=== PATIENT | male | born 1970 | race Caucasian/White ===

== ENCOUNTER 2024-05-10 19:55 | Inpatient (IN) | payer MEDICAID ==
[~2024-05-10] VITALS: Ht 188 cm; Wt 76.2 kg
[2024-05-10] MEDS: IPRATROPIUM/ALBUTEROL 0.5-3(2.5)MG/3ML NEB HHN SCH (08:48)
[2024-05-10 20:05] VITALS: RESP 18
[2024-05-10] MEDS ORDERED: FENTANYL 2500MCG/250ML PMX 250 ML IV ONE (20:15)
[2024-05-10] MEDS: ETOMIDATE 2MG/ML 10ML VIAL IV ONE (20:32)
[2024-05-10] MEDS: ROCURONIUM BROMIDE 10MG/ML VIAL 5ML IV ONE (20:33)
[2024-05-10] MEDS: LEVETIRACETAM 1000MG PREMIX 100 ML IV ONE (20:38)
[2024-05-10] MEDS: PROPOFOL 10MG/ML 100ML 100 ML IV SCH (20:38)
[2024-05-10 20:53] LABS: CHLORIDE 103 mEq/L (98-107); POTASSIUM 3.7 mEq/L (3.5-5.1); SODIUM 142 mEq/L (136-145)
[2024-05-10 20:54] LABS: CALCIUM 9.4 mg/dL (8.7-10.4); CARBON DIOXIDE 17 mEq/L (21-32)
[2024-05-10 20:59] LABS: CREATININE 1.4 mg/dL (0.6-1.3); GLUCOSE 187 mg/dL (70-105); UREA NITROGEN BLOOD 12 mg/dL (9-23)
[2024-05-10 21:00] LABS: TROPONIN I HIGH SENSITIVITY 5 ng/L (3.0-53)
[2024-05-10 21:08] LABS: ETHANOL BLOOD < 10 mg/dL (<10)
[2024-05-10 21:36] LABS: BASOPHILS % 0.9 % (0.0-2.0); EOSINOPHILS % 0.2 % (0.0-5.0); HEMATOCRIT. 32.8 % (42.0-52.0); HEMOGLOBIN. 10.8 g/dL (14.0-18.0); MEAN CORPUSCULAR HEMOGLOBIN 35.5 pg (28.0-32.0); MEAN CORPUSCULAR HGB CONC 32.9 g/dL (31.0-37.0); MEAN CORPUSCULAR VOLUME 107.8 fL (80.0-94.0); MONOCYTES % 6.9 % (2.0-8.0); RED BLOOD CELL COUNT 3.04 mill/uL (4.7-6.1); RED CELL DISTRIBUTION WIDTH 12.3 % (11.6-14.6); WHITE BLOOD COUNT 12.4 x1000/uL (4.5-11.0)
[2024-05-10 21:42] LABS: DIFFERENTIAL COMMENT 1
[2024-05-10] MEDS ORDERED: MAGNESIUM/ALUMINUM HYDROXIDE/SIMETHICONE 30ML UDC PO PRN (21:45)
[2024-05-10] MEDS ORDERED: IPRATROPIUM/ALBUTEROL 0.5-3(2.5)MG/3ML NEB HHN PRN (21:45)
[2024-05-10] MEDS: DEXT 5%/LACTATED RINGERS 1,000 ML IV ONE (21:45)
[2024-05-10] MEDS ORDERED: DOCUSATE SODIUM 100MG CAPSULE PO PRN (21:45)
[2024-05-10] MEDS ORDERED: ONDANSETRON HCL 4MG/2ML INJ IV PRN (21:45)
[2024-05-10 22:17] LABS: PLATELET 179 x1000/uL (130-400)
[2024-05-10 22:18] LABS: MEAN PLATELET VOLUME 9.4 fl (7.4-10.4)
[2024-05-10] MEDS: FENTANYL CITRATE 2,500 MCG in SODIUM CHLORIDE 0.9% 200 ML IV PRN (22:22)
[2024-05-10 22:29] LABS: BG DEOXYHEMOGLOBIN 0.7 % (0.0-5.0); BG FRACTION INSPIRED OXYGEN 90; BG HCO3 ACT 23.2 mmol/L (21.0-28.0); BG METHEMOGLOBIN 0.2 % (0.5-1.5); BG OXYGEN SATURATION 99.3 % (94.0-98.0); BG OXYHEMOGLOBIN 98.1 % (94.0-98.0); BG PCO2 51.4 mmHg (35.0-48.0); BG PH 7.272 (7.350-7.450); BG PO2 198.6 mmHg (83.0-108.0); BG SAMPLE SITE RIGHT RADIAL; BG TOTAL HEMOGLOBIN 11.8 g/dL (13.5-17.5); BG VENT MODE VENT - AC
[2024-05-10 22:55] VITALS: PULSE 94; RESP 18; O2SAT 100
[2024-05-10 22:59] LABS: INR 1.1; PROTHROMBIN TIME 11.7 sec (9.6-11.0)
[2024-05-10 23:05] LABS: IRON 151 ug/dL (65-175)
[2024-05-10 23:07] LABS: AMMONIA 32 uMol/L (<32); TOTAL IRON BINDING CAPACITY 308 ug/dl (250-425)
[2024-05-10 23:22] LABS: CREATINE KINASE 152 IU/L (46-171)
[2024-05-10] MEDS ORDERED: PROPOFOL 10MG/ML 100ML 100 ML IV SCH (23:45)
[2024-05-10] MEDS ORDERED: FENTANYL 2500MCG/250ML PMX 250 ML IV PRN (23:45)
[2024-05-11] VITALS (92 sets, daily range): BP systolic 73–126; BP diastolic 48–89; PULSE 63–148; RESP 15–21; TEMP 36.50292–37.2252; O2SAT 94–100
[2024-05-11 00:04] LABS: CLARITY URINE CLEAR (CLEAR); COLOR URINE YELLOW (YELLOW); GLUCOSE URINE 1+ (NEGATIVE); KETONES URINE NEGATIVE (NEGATIVE); LEUKOCYTE ESTERASE URINE NEGATIVE (NEGATIVE); NITRITE URINE NEGATIVE (NEGATIVE); OCCULT BLOOD URINE NEGATIVE (NEGATIVE); PROTEIN URINE NEGATIVE (NEGATIVE); SPECIFIC GRAVITY URINE 1.014 (1.005-1.030); UROBILINOGEN URINE 0.2 E.U./dL (0.2-1.0)
[2024-05-11 00:05] LABS: HEMATOCRIT 32.8 % (42.0-52.0); HEMOGLOBIN 11.1 g/dL (14.0-18.0); MEAN CORPUSCULAR HEMOGLOBIN 35.9 pg (28.0-32.0); MEAN CORPUSCULAR HGB CONC 33.9 g/dL (31.0-37.0); MEAN CORPUSCULAR VOLUME 106.1 fL (80.0-94.0); PLATELET 162 x1000/uL (130-400); RED BLOOD CELL COUNT 3.09 mill/uL (4.7-6.1); RED CELL DISTRIBUTION WIDTH 12.4 % (11.6-14.6); WHITE BLOOD COUNT 9.3 x1000/uL (4.5-11.0)
[2024-05-11 00:07] LABS: CHLORIDE 106 mEq/L (98-107); POTASSIUM 3.7 mEq/L (3.5-5.1); SODIUM 139 mEq/L (136-145)
[2024-05-11 00:08] LABS: CALCIUM 9.1 mg/dL (8.7-10.4); CARBON DIOXIDE 23 mEq/L (21-32)
[2024-05-11 00:13] LABS: CREATININE 1.2 mg/dL (0.6-1.3); GLUCOSE 171 mg/dL (70-105); UREA NITROGEN BLOOD 12 mg/dL (9-23)
[2024-05-11 00:15] LABS: PHOSPHORUS 3.7 mg/dL (2.5-4.9)
[2024-05-11] MEDS ORDERED: MIDAZOLAM 100MG/100ML PMX 100 ML IV PRN (00:15)
[2024-05-11] MEDS ORDERED: PHENYLEPHRINE 50MG/250ML PMX 250 ML IV PRN (00:15)
[2024-05-11] MEDS ORDERED: DEXMEDETOMIDINE 400 MCG/100 ML 100 ML IV PRN (00:15)
[2024-05-11 00:25] LABS: *AMPHETAMINES SCREEN URINE NEGATIVE (NEGATIVE); *BARBITURATES SCREEN URINE NEGATIVE (NEGATIVE); *BENZODIAZEPINES SCREEN URINE PRESUMPTIVE POSITIVE (NEGATIVE)
[2024-05-11 00:26] LABS: *COCAINE SCREEN URINE NEGATIVE (NEGATIVE); CANNABINOID URINE SCREEN NEGATIVE (NEGATIVE); ECSTASY MDMA SCREEN URINE NEGATIVE (NEGATIVE); METHADONE URINE SCREEN NEGATIVE (NEGATIVE); OPIATES URINE SCREEN NEGATIVE (NEGATIVE); PHENCYCLIDINE URINE SCREEN NEGATIVE (NEGATIVE)
[2024-05-11] MEDS: IPRATROPIUM/ALBUTEROL 0.5-3(2.5)MG/3ML NEB HHN ONE (00:30)
[2024-05-11] MEDS: MIDAZOLAM 100MG/100ML PMX 100 ML IV PRN (00:36)
[2024-05-11] MEDS: DEXMEDETOMIDINE 400 MCG/100 ML 100 ML IV PRN (00:37)
[2024-05-11 01:06] LABS: BG BASE EXCESS -0.7 mmol/L (-2.0-3.0); BG CARBOXYHEMOGLOBIN 0.3 % (0.5-1.5); BG FRACTION INSPIRED OXYGEN 100; BG HCO3 ACT 25.3 mmol/L (21.0-28.0); BG METHEMOGLOBIN 0.3 % (0.5-1.5); BG OXYHEMOGLOBIN 98.4 % (94.0-98.0); BG PCO2 47.4 mmHg (35.0-48.0); BG PH 7.345 (7.350-7.450); BG PO2 149.2 mmHg (83.0-108.0); BG SAMPLE SITE LEFT RADIAL; BG TOTAL HEMOGLOBIN 11.5 g/dL (13.5-17.5); BG VENT MODE VENT - AC
[2024-05-11] MEDS ORDERED: LORAZEPAM 2MG/ML INJ IV NR (03:30)
[2024-05-11] MEDS ORDERED: LEVETIRACETAM 500MG PREMIX 100 ML IV NR (03:30)
[2024-05-11 04:11] LABS: BACTERIA URINE NONE SEEN; RBC URINE 0-2 /hpf (0-2); SQUAMOUS EPITHELIAL CELL URINE NONE SEEN /lpf (RARE/1+); WBC URINE 0-2 /hpf (0-2)
[2024-05-11 05:55] LABS: BASOPHILS % 0.3 % (0.0-2.0); DIFFERENTIAL COMMENT 0; EOSINOPHILS % 0.2 % (0.0-5.0); HEMATOCRIT. 30.5 % (42.0-52.0); HEMOGLOBIN. 10.4 g/dL (14.0-18.0); LYMPHOCYTES % 22.6 % (20.0-50.0); MEAN CORPUSCULAR HEMOGLOBIN 35.8 pg (28.0-32.0); MEAN CORPUSCULAR HGB CONC 34.1 g/dL (31.0-37.0); MEAN CORPUSCULAR VOLUME 104.9 fL (80.0-94.0); MEAN PLATELET VOLUME 8.6 fl (7.4-10.4); MONOCYTES % 1.4 % (2.0-8.0); NEUTROPHILS % 75.5 % (40.0-76.0); PLATELET 136 x1000/uL (130-400); RED BLOOD CELL COUNT 2.91 mill/uL (4.7-6.1); RED CELL DISTRIBUTION WIDTH 12.1 % (11.6-14.6); WHITE BLOOD COUNT 5.6 x1000/uL (4.5-11.0)
[2024-05-11 06:36] LABS: CALCIUM 8.7 mg/dL (8.7-10.4); CARBON DIOXIDE 25 mEq/L (21-32); CHLORIDE 107 mEq/L (98-107); POTASSIUM 3.4 mEq/L (3.5-5.1); SODIUM 140 mEq/L (136-145)
[2024-05-11] MEDS: NOREPINEPHRINE 8MG/250ML PMX 250 ML IV PRN (06:40)
[2024-05-11 06:41] LABS: CREATININE 1.1 mg/dL (0.6-1.3)
[2024-05-11 06:42] LABS: GLUCOSE 131 mg/dL (70-105); T4 FREE 1.14 ng/dL (0.89-1.76); UREA NITROGEN BLOOD 14 mg/dL (9-23)
[2024-05-11] MEDS: LEVETIRACETAM 500MG PREMIX 100 ML IV SCH (08:22)
[2024-05-11] MEDS: FAMOTIDINE 20MG/2ML VIAL IV SCH (08:23)
[2024-05-11] MEDS ORDERED: LEVETIRACETAM 500MG in NACL 100ML PREMIX IV SCH (09:00)
[2024-05-11] MEDS: FENTANYL CITRATE 2,500 MCG in SODIUM CHLORIDE 0.9% 200 ML IV PRN (09:09)
[2024-05-11 09:12] LABS: BG BASE EXCESS -3.3 mmol/L (-2.0-3.0); BG CARBOXYHEMOGLOBIN 0.4 % (0.5-1.5); BG DEOXYHEMOGLOBIN 0.5 % (0.0-5.0); BG FRACTION INSPIRED OXYGEN 90; BG HCO3 ACT 23.1 mmol/L (21.0-28.0); BG OXYGEN SATURATION 99.5 % (94.0-98.0); BG OXYHEMOGLOBIN 99.1 % (94.0-98.0); BG PCO2 47.4 mmHg (35.0-48.0); BG PH 7.306 (7.350-7.450); BG PO2 218.7 mmHg (83.0-108.0); BG SAMPLE SITE RIGHT BRACHIAL; BG TOTAL HEMOGLOBIN 11.6 g/dL (13.5-17.5); BG VENT MODE VENT - AC
[2024-05-11 11:19] LABS: PROTHROMBIN TIME 11.4 sec (9.6-11.0)
[2024-05-11] MEDS: POTASSIUM CHLORIDE 20MEQ/PACKET PO NR (12:38)
[2024-05-11] MEDS: MAGNESIUM 2 G PREMIX 50 ML IV NR (12:38)
[2024-05-11] MEDS: LORAZEPAM 2MG/ML INJ IV PRN (14:08)
[2024-05-11] MEDS: ENOXAPARIN 40MG/0.4ML SYR SUBCUT SCH (16:23)
[2024-05-11 21:10] LABS: FOLIC ACID (FOLATE) SERUM 17.06 ng/mL (>5.38)
[2024-05-11 21:11] LABS: VITAMIN B12 SERUM 311 pg/mL (211-911)
[2024-05-11 21:12] LABS: FERRITIN 318 ng/mL (22-322)
[2024-05-11] MEDS: SODIUM CHLORIDE 0.9% 500 ML IV ONE (22:29)
[2024-05-12] VITALS (99 sets, daily range): BP systolic 88–126; BP diastolic 61–106; PULSE 91–139; RESP 13–25; TEMP 37.2252–38.892; O2SAT 10–100
[2024-05-12] MEDS: PHENYLEPHRINE 50 MG in DEXTROSE 5% WATER 250 ML IV PRN (02:26)
[2024-05-12] MEDS: ACETAMINOPHEN 325MG TABLET PO PRN (02:58)
[2024-05-12 05:50] LABS: BASOPHILS % 0.3 % (0.0-2.0); DIFFERENTIAL COMMENT 0; EOSINOPHILS % 0.3 % (0.0-5.0); HEMATOCRIT. 31.4 % (42.0-52.0); HEMOGLOBIN. 10.5 g/dL (14.0-18.0); LYMPHOCYTES % 15.4 % (20.0-50.0); MEAN CORPUSCULAR HEMOGLOBIN 35.7 pg (28.0-32.0); MEAN CORPUSCULAR HGB CONC 33.5 g/dL (31.0-37.0); MEAN CORPUSCULAR VOLUME 106.7 fL (80.0-94.0); MEAN PLATELET VOLUME 9.2 fl (7.4-10.4); MONOCYTES % 9.7 % (2.0-8.0); NEUTROPHILS % 74.3 % (40.0-76.0); PLATELET 111 x1000/uL (130-400); RED BLOOD CELL COUNT 2.95 mill/uL (4.7-6.1); RED CELL DISTRIBUTION WIDTH 12.6 % (11.6-14.6)
[2024-05-12 06:14] LABS: CALCIUM 8.5 mg/dL (8.7-10.4); POTASSIUM 3.7 mEq/L (3.5-5.1)
[2024-05-12 06:37] LABS: CREATININE 1.7 mg/dL (0.6-1.3)
[2024-05-12 07:45] LABS: BG BASE EXCESS -0.7 mmol/L (-2.0-3.0); BG CARBOXYHEMOGLOBIN 0.5 % (0.5-1.5); BG HCO3 ACT 24.7 mmol/L (21.0-28.0); BG METHEMOGLOBIN 0.3 % (0.5-1.5); BG OXYHEMOGLOBIN 95.2 % (94.0-98.0); BG PCO2 43.6 mmHg (35.0-48.0); BG PH 7.371 (7.350-7.450); BG PO2 81.2 mmHg (83.0-108.0); BG SAMPLE SITE RIGHT RADIAL; BG TOTAL HEMOGLOBIN 11.3 g/dL (13.5-17.5); BG VENT MODE VENT - AC
[2024-05-12] MEDS: PROPRANOLOL HCL 10MG TABLET PO SCH (09:00)
[2024-05-12] MEDS: MULTIVITAMINS,THER W-MINERALS TABLET PO SCH (09:27)
[2024-05-12] MEDS: THIAMINE HCL 100MG TABLET PO SCH (09:27)
[2024-05-13] VITALS (108 sets, daily range): BP systolic 88–164; BP diastolic 42–114; PULSE 80–126; RESP 9–24; TEMP 36.6696–39.4476; O2SAT 96–100
[2024-05-13 06:31] LABS: BASOPHILS % 0.2 % (0.0-2.0); DIFFERENTIAL COMMENT 0; EOSINOPHILS % 0.6 % (0.0-5.0); HEMATOCRIT. 32.1 % (42.0-52.0); HEMOGLOBIN. 10.8 g/dL (14.0-18.0); LYMPHOCYTES % 13.1 % (20.0-50.0); MEAN CORPUSCULAR HEMOGLOBIN 35.7 pg (28.0-32.0); MEAN CORPUSCULAR HGB CONC 33.8 g/dL (31.0-37.0); MEAN CORPUSCULAR VOLUME 105.6 fL (80.0-94.0); MEAN PLATELET VOLUME 9.4 fl (7.4-10.4); MONOCYTES % 7.3 % (2.0-8.0); NEUTROPHILS % 78.8 % (40.0-76.0); PLATELET 82 x1000/uL (130-400); RED BLOOD CELL COUNT 3.04 mill/uL (4.7-6.1); RED CELL DISTRIBUTION WIDTH 12.3 % (11.6-14.6); WHITE BLOOD COUNT 4.9 x1000/uL (4.5-11.0)
[2024-05-13 06:42] LABS: CHLORIDE 106 mEq/L (98-107); POTASSIUM 4.3 mEq/L (3.5-5.1); SODIUM 137 mEq/L (136-145)
[2024-05-13 06:43] LABS: CALCIUM 8.9 mg/dL (8.7-10.4); CARBON DIOXIDE 24 mEq/L (21-32)
[2024-05-13 06:48] LABS: CREATININE 1.2 mg/dL (0.6-1.3); GLUCOSE 147 mg/dL (70-105); UREA NITROGEN BLOOD 14 mg/dL (9-23)
[2024-05-13 09:49] LABS: BG BASE EXCESS -0.2 mmol/L (-2.0-3.0); BG CARBOXYHEMOGLOBIN 0.1 % (0.5-1.5); BG DEOXYHEMOGLOBIN 2.4 % (0.0-5.0); BG HCO3 ACT 23.7 mmol/L (21.0-28.0); BG METHEMOGLOBIN 0.1 % (0.5-1.5); BG OXYGEN SATURATION 97.6 % (94.0-98.0); BG OXYHEMOGLOBIN 97.4 % (94.0-98.0); BG PCO2 36.2 mmHg (35.0-48.0); BG PH 7.434 (7.350-7.450); BG PO2 90.9 mmHg (83.0-108.0); BG SAMPLE SITE RIGHT RADIAL; BG TOTAL HEMOGLOBIN 12.2 g/dL (13.5-17.5); BG VENT MODE VENT - CPAP
[2024-05-13] MEDS: HYDRALAZINE 20MG/ML VIAL IV PRN (19:48)
[2024-05-13] MEDS: LEVETIRACETAM 1000MG PREMIX 100 ML IV SCH (20:06)
[2024-05-13] MEDS ORDERED: LEVETIRACETAM 1,000MG in NACL 100ML PREMIX IV SCH (21:00)
[2024-05-14] VITALS (113 sets, daily range): BP systolic 100–163; BP diastolic 65–118; PULSE 64–114; RESP 11–28; TEMP 36.9474–38.39196; O2SAT 97–100
[2024-05-14 06:16] LABS: HEMATOCRIT. 35.2 % (42.0-52.0); HEMOGLOBIN. 11.7 g/dL (14.0-18.0); MEAN CORPUSCULAR HEMOGLOBIN 34.9 pg (28.0-32.0); MEAN CORPUSCULAR HGB CONC 33.1 g/dL (31.0-37.0); MEAN CORPUSCULAR VOLUME 105.3 fL (80.0-94.0); MEAN PLATELET VOLUME 11.2 fl (7.4-10.4); PLATELET 87 x1000/uL (130-400); RED BLOOD CELL COUNT 3.34 mill/uL (4.7-6.1); RED CELL DISTRIBUTION WIDTH 11.8 % (11.6-14.6)
[2024-05-14 06:24] LABS: CARBON DIOXIDE 26 mEq/L (21-32); CHLORIDE 103 mEq/L (98-107); POTASSIUM 3.4 mEq/L (3.5-5.1); SODIUM 136 mEq/L (136-145)
[2024-05-14 06:25] LABS: CALCIUM 9.1 mg/dL (8.7-10.4)
[2024-05-14 06:30] LABS: CREATININE 0.9 mg/dL (0.6-1.3); GLUCOSE 190 mg/dL (70-105); UREA NITROGEN BLOOD 12 mg/dL (9-23)
[2024-05-14 07:15] LABS: DIFFERENTIAL COMMENT 1
[2024-05-14] MEDS: LORAZEPAM 1MG TABLET PO NR (08:27)
[2024-05-14 09:12] LABS: PLATELET ESTIMATE DECREASED
[2024-05-14 10:08] LABS: BG CARBOXYHEMOGLOBIN 0.3 % (0.5-1.5); BG DEOXYHEMOGLOBIN 1.6 % (0.0-5.0); BG FRACTION INSPIRED OXYGEN 40; BG HCO3 ACT 27.3 mmol/L (21.0-28.0); BG METHEMOGLOBIN 0.3 % (0.5-1.5); BG OXYGEN SATURATION 98.4 % (94.0-98.0); BG OXYHEMOGLOBIN 97.8 % (94.0-98.0); BG PCO2 36.7 mmHg (35.0-48.0); BG PO2 114.2 mmHg (83.0-108.0); BG SAMPLE SITE RIGHT RADIAL; BG TOTAL HEMOGLOBIN 11.4 g/dL (13.5-17.5); BG VENT MODE VENT - CPAP
[2024-05-14] MEDS ORDERED: PIPERACILLIN/TAZO 3.375G/50ML 50 ML IV SCH (14:00)
[2024-05-14] MEDS ORDERED: CEFEPIME 500 MG in DEXTROSE 5% WATER 50 ML IV SCH (14:30)
[2024-05-14] MEDS: CEFEPIME 2GM/100ML 100 ML IV SCH (15:48)
[2024-05-14] MEDS: DEXMEDETOMIDINE 400 MCG/100 ML 100 ML IV PRN (15:48)
[2024-05-14 19:10] LABS: AMMONIA < 17 uMol/L (<32)
[2024-05-14] MEDS: METRONIDAZOLE 500MG TABLET PO SCH (21:40)
[2024-05-15] VITALS (100 sets, daily range): BP systolic 106–184; BP diastolic 66–99; PULSE 67–112; RESP 12–28; TEMP 36.89184–38.22528; O2SAT 92–100
[2024-05-15 06:06] LABS: HEMATOCRIT. 32.8 % (42.0-52.0); HEMOGLOBIN. 11.1 g/dL (14.0-18.0); MEAN CORPUSCULAR HEMOGLOBIN 35.2 pg (28.0-32.0); MEAN CORPUSCULAR HGB CONC 33.9 g/dL (31.0-37.0); MEAN CORPUSCULAR VOLUME 103.8 fL (80.0-94.0); MEAN PLATELET VOLUME 10.5 fl (7.4-10.4); PLATELET 100 x1000/uL (130-400); RED BLOOD CELL COUNT 3.16 mill/uL (4.7-6.1); RED CELL DISTRIBUTION WIDTH 12.5 % (11.6-14.6); WHITE BLOOD COUNT 6.3 x1000/uL (4.5-11.0)
[2024-05-15 06:09] LABS: CHLORIDE 102 mEq/L (98-107); POTASSIUM 3.3 mEq/L (3.5-5.1); SODIUM 135 mEq/L (136-145)
[2024-05-15 06:11] LABS: CALCIUM 9.3 mg/dL (8.7-10.4); CARBON DIOXIDE 26 mEq/L (21-32)
[2024-05-15 06:16] LABS: CREATININE 0.8 mg/dL (0.6-1.3); GLUCOSE 145 mg/dL (70-105); UREA NITROGEN BLOOD 12 mg/dL (9-23)
[2024-05-15 06:18] LABS: ALANINE AMINOTRANSFERASE 33 IU/L (10-49); ALBUMIN 3.5 g/dL (3.2-4.8); ASPARTATE AMINOTRANSFERASE 35 IU/L (<34); CREATINE KINASE 52 IU/L (46-171)
[2024-05-15 06:19] LABS: BILIRUBIN DIRECT 0.2 mg/dL (<=3.0); BILIRUBIN TOTAL 0.6 mg/dL (0.1-1.0); PROTEIN TOTAL 6.2 g/dL (6.0-8.3)
[2024-05-15 07:44] LABS: DIFFERENTIAL COMMENT 1
[2024-05-15 10:22] LABS: BG BASE EXCESS -0.4 mmol/L (-2.0-3.0); BG CARBOXYHEMOGLOBIN 0.9 % (0.5-1.5); BG FRACTION INSPIRED OXYGEN 40; BG HCO3 ACT 25.6 mmol/L (21.0-28.0); BG METHEMOGLOBIN 0.3 % (0.5-1.5); BG OXYGEN SATURATION 90.9 % (94.0-98.0); BG OXYHEMOGLOBIN 89.8 % (94.0-98.0); BG PCO2 47.7 mmHg (35.0-48.0); BG PH 7.348 (7.350-7.450); BG PO2 66.4 mmHg (83.0-108.0); BG TOTAL HEMOGLOBIN 11.8 g/dL (13.5-17.5); BG VENT MODE VENT - CPAP
[2024-05-15 14:14] LABS: PLATELET ESTIMATE DECREASED
[2024-05-15 14:42] LABS: BG BASE EXCESS 0.3 mmol/L (-2.0-3.0); BG CARBOXYHEMOGLOBIN 0.2 % (0.5-1.5); BG DEOXYHEMOGLOBIN 6.7 % (0.0-5.0); BG FRACTION INSPIRED OXYGEN 32; BG HCO3 ACT 22.5 mmol/L (21.0-28.0); BG METHEMOGLOBIN 0.3 % (0.5-1.5); BG OXYGEN SATURATION 93.3 % (94.0-98.0); BG OXYHEMOGLOBIN 92.8 % (94.0-98.0); BG PCO2 28.8 mmHg (35.0-48.0); BG PH 7.511 (7.350-7.450); BG PO2 61.6 mmHg (83.0-108.0); BG SAMPLE SITE RIGHT RADIAL; BG TOTAL HEMOGLOBIN 11.3 g/dL (13.5-17.5); BG VENT MODE NASAL CANNULA
[2024-05-16] VITALS (82 sets, daily range): BP systolic 125–170; BP diastolic 61–128; PULSE 84–115; RESP 12–31; TEMP 37.00296–38.22528; O2SAT 92–98
[2024-05-16] MEDS: MEROPENEM 1G/100ML 100 ML IV SCH (06:30)
[2024-05-16] MEDS: LORAZEPAM 2MG/ML INJ IV PRN (09:20)
[2024-05-16 09:56] LABS: HEMOGLOBIN. 11.5 g/dL (14.0-18.0); MEAN CORPUSCULAR HEMOGLOBIN 34.2 pg (28.0-32.0); MEAN CORPUSCULAR VOLUME 103.8 fL (80.0-94.0); MEAN PLATELET VOLUME 9.4 fl (7.4-10.4); PLATELET 137 x1000/uL (130-400); RED BLOOD CELL COUNT 3.37 mill/uL (4.7-6.1); RED CELL DISTRIBUTION WIDTH 12.2 % (11.6-14.6); WHITE BLOOD COUNT 7.8 x1000/uL (4.5-11.0)
[2024-05-16 10:00] LABS: DIFFERENTIAL COMMENT 1
[2024-05-16 10:17] LABS: CARBON DIOXIDE 28 mEq/L (21-32); CHLORIDE 100 mEq/L (98-107); SODIUM 136 mEq/L (136-145)
[2024-05-16 10:18] LABS: CALCIUM 9.4 mg/dL (8.7-10.4)
[2024-05-16 10:22] LABS: CREATININE 0.9 mg/dL (0.6-1.3)
[2024-05-16 10:23] LABS: GLUCOSE 119 mg/dL (70-105); UREA NITROGEN BLOOD 13 mg/dL (9-23)
[2024-05-16 10:25] LABS: PHOSPHORUS 2.5 mg/dL (2.5-4.9)
[2024-05-16 10:30] LABS: POTASSIUM 2.7 mEq/L (3.5-5.1)
[2024-05-16] MEDS ORDERED: KCL 20MEQ/100ML PREMIX 100 ML IV ONE ×2 (10:45→13:45)
[2024-05-16] MEDS: MAGNESIUM 2 G PREMIX 50 ML IV NR (11:34)
[2024-05-16] MEDS: GUAIFENESIN 200MG/10ML SUGAR FREE UDC PO PRN (13:25)
[2024-05-16] MEDS: POTASSIUM CHLORIDE 40MEQ in DEXT 5% WATER 250ML IV NR (13:26)
[2024-05-16 14:48] LABS: PLATELET ESTIMATE NORMAL
[2024-05-16] MEDS: NICOTINE 14MG PATCH TD NR (15:45)
[2024-05-17] VITALS (13 sets, daily range): BP systolic 124–160; BP diastolic 81–107; PULSE 84–118; RESP 17–34; TEMP 36.3918–37.05852; O2SAT 95–100
[2024-05-17 06:26] LABS: CHLORIDE 102 mEq/L (98-107); POTASSIUM 3.1 mEq/L (3.5-5.1); SODIUM 137 mEq/L (136-145)
[2024-05-17 06:27] LABS: CARBON DIOXIDE 26 mEq/L (21-32)
[2024-05-17 06:28] LABS: CALCIUM 9.2 mg/dL (8.7-10.4); HEMATOCRIT. 33.1 % (42.0-52.0); HEMOGLOBIN. 11.1 g/dL (14.0-18.0); MEAN CORPUSCULAR HEMOGLOBIN 34.5 pg (28.0-32.0); MEAN CORPUSCULAR HGB CONC 33.4 g/dL (31.0-37.0); MEAN CORPUSCULAR VOLUME 103.2 fL (80.0-94.0); MEAN PLATELET VOLUME 9.6 fl (7.4-10.4); PLATELET 170 x1000/uL (130-400); RED BLOOD CELL COUNT 3.21 mill/uL (4.7-6.1); RED CELL DISTRIBUTION WIDTH 12.1 % (11.6-14.6)
[2024-05-17 06:32] LABS: CREATININE 0.8 mg/dL (0.6-1.3); GLUCOSE 133 mg/dL (70-105)
[2024-05-17 06:33] LABS: UREA NITROGEN BLOOD 14 mg/dL (9-23)
[2024-05-17 07:14] LABS: DIFFERENTIAL COMMENT 1
[2024-05-17] MEDS: NICOTINE 14MG PATCH TD SCH (08:07)
[2024-05-17 09:58] LABS: NUCLEATED RED BLOOD CELLS 1 /100 WBC; PLATELET ESTIMATE NORMAL
[2024-05-17] MEDS: POTASSIUM CHLORIDE 20MEQ TABLET SR PO NR (13:46)
[2024-05-17] MEDS: LEVOFLOXACIN 500MG TABLET PO SCH (16:07)
[2024-05-17] MEDS: METRONIDAZOLE 500MG TABLET PO SCH (16:07)
[2024-05-18] VITALS (8 sets, daily range): BP systolic 134–162; BP diastolic 83–131; PULSE 74–112; RESP 15–21; TEMP 36.28068–37.2252; O2SAT 92–100
[2024-05-18] MEDS ORDERED: DEXTROSE 50% WATER 50ML SYRINGE IV PRN (02:15)
[2024-05-18 06:09] LABS: HEMATOCRIT. 32.6 % (42.0-52.0); HEMOGLOBIN. 11.1 g/dL (14.0-18.0); MEAN CORPUSCULAR HEMOGLOBIN 35.2 pg (28.0-32.0); MEAN CORPUSCULAR VOLUME 103.4 fL (80.0-94.0); MEAN PLATELET VOLUME 9.6 fl (7.4-10.4); PLATELET 199 x1000/uL (130-400); RED BLOOD CELL COUNT 3.15 mill/uL (4.7-6.1); RED CELL DISTRIBUTION WIDTH 12.4 % (11.6-14.6); WHITE BLOOD COUNT 9.5 x1000/uL (4.5-11.0)
[2024-05-18 06:20] LABS: CARBON DIOXIDE 26 mEq/L (21-32); CHLORIDE 104 mEq/L (98-107); DIFFERENTIAL COMMENT 1; POTASSIUM 3.4 mEq/L (3.5-5.1); SODIUM 138 mEq/L (136-145)
[2024-05-18 06:21] LABS: CALCIUM 9.2 mg/dL (8.7-10.4)
[2024-05-18 06:26] LABS: CREATININE 0.9 mg/dL (0.6-1.3); GLUCOSE 130 mg/dL (70-105); UREA NITROGEN BLOOD 13 mg/dL (9-23)
[2024-05-18] MEDS: KCL 20MEQ/100ML PREMIX 100 ML IV NR (11:59)
[2024-05-18 17:21] LABS: ANISOCYTOSIS 1+; PLATELET ESTIMATE NORMAL
[2024-05-18 17:22] LABS: GIANT PLATELETS 1+
[2024-05-18] MEDS: MELATONIN 3MG TABLET PO SCH (22:42)
[2024-05-19] VITALS: BP 135/100; PULSE 85; RESP 18; TEMP 36.44736
[2024-05-19 04:00] VITALS: BP 150/93; PULSE 87; RESP 23; TEMP 36.3918; O2SAT 99
[2024-05-19 08:00] VITALS: BP 151/97; PULSE 88; RESP 18; TEMP 37.72524; O2SAT 97
[2024-05-19 09:25] LABS: HEMATOCRIT. 33.4 % (42.0-52.0); MEAN CORPUSCULAR HEMOGLOBIN 34.2 pg (28.0-32.0); MEAN CORPUSCULAR VOLUME 103.7 fL (80.0-94.0); MEAN PLATELET VOLUME 9.4 fl (7.4-10.4); PLATELET 258 x1000/uL (130-400); RED BLOOD CELL COUNT 3.22 mill/uL (4.7-6.1); RED CELL DISTRIBUTION WIDTH 12.4 % (11.6-14.6); WHITE BLOOD COUNT 10.7 x1000/uL (4.5-11.0)
[2024-05-19 09:27] LABS: CHLORIDE 105 mEq/L (98-107); DIFFERENTIAL COMMENT 1; POTASSIUM 4.2 mEq/L (3.5-5.1); SODIUM 137 mEq/L (136-145)
[2024-05-19 09:28] LABS: CARBON DIOXIDE 27 mEq/L (21-32)
[2024-05-19 09:29] LABS: CALCIUM 8.8 mg/dL (8.7-10.4)
[2024-05-19 09:33] LABS: CREATININE 0.9 mg/dL (0.6-1.3); GLUCOSE 116 mg/dL (70-105); UREA NITROGEN BLOOD 14 mg/dL (9-23)
[2024-05-19 12:00] VITALS: BP 122/86; PULSE 82; RESP 16; TEMP 37.16964; O2SAT 97
[2024-05-19 12:43] LABS: PLATELET ESTIMATE NORMAL
[2024-05-19 16:00] VITALS: BP 139/102; PULSE 98; RESP 18; TEMP 37.55856; O2SAT 98
[2024-05-19 20:00] VITALS: BP 113/67; PULSE 114; RESP 23; TEMP 36.44736; O2SAT 98
[2024-05-19] MEDS: LEVETIRACETAM 500MG TABLET PO SCH (21:33)
[2024-05-20] VITALS: BP 113/66; PULSE 87; RESP 17; TEMP 36.55848; O2SAT 100
[2024-05-20 04:00] VITALS: BP 106/81; PULSE 81; RESP 17; TEMP 36.6696; O2SAT 96
[2024-05-20 06:07] LABS: CALCIUM 9.2 mg/dL (8.7-10.4); CHLORIDE 103 mEq/L (98-107); POTASSIUM 4.5 mEq/L (3.5-5.1); SODIUM 137 mEq/L (136-145)
[2024-05-20 06:08] LABS: CARBON DIOXIDE 26 mEq/L (21-32); HEMATOCRIT. 33.3 % (42.0-52.0); HEMOGLOBIN. 11.1 g/dL (14.0-18.0); MEAN CORPUSCULAR HEMOGLOBIN 34.8 pg (28.0-32.0); MEAN CORPUSCULAR HGB CONC 33.4 g/dL (31.0-37.0); MEAN CORPUSCULAR VOLUME 104.4 fL (80.0-94.0); PLATELET 305 x1000/uL (130-400); RED BLOOD CELL COUNT 3.19 mill/uL (4.7-6.1); RED CELL DISTRIBUTION WIDTH 12.4 % (11.6-14.6); WHITE BLOOD COUNT 9.5 x1000/uL (4.5-11.0)
[2024-05-20 06:13] LABS: CREATININE 0.9 mg/dL (0.6-1.3); GLUCOSE 106 mg/dL (70-105); UREA NITROGEN BLOOD 15 mg/dL (9-23)
[2024-05-20 06:24] LABS: DIFFERENTIAL COMMENT 1
[2024-05-20 08:00] VITALS: BP 93/57; PULSE 94; RESP 18; TEMP 37.39188; O2SAT 97
[2024-05-20 12:00] VITALS: BP 124/84; PULSE 80; RESP 21; TEMP 37.39188; O2SAT 98
[2024-05-20 16:00] VITALS: BP 142/92; PULSE 81; RESP 20; TEMP 36.61404; O2SAT 97
[2024-05-20 17:01] LABS: PLATELET ESTIMATE NORMAL
[2024-05-20] MEDS ORDERED: THIA100T72 PO ×2 (18:15→19:55)
[2024-05-20] MEDS ORDERED: KEPP500 PO ×2 (18:15→19:55)
[2024-05-20] MEDS ORDERED: PROP10TA10 PO (18:15)
[2024-05-20 20:08] VITALS: PULSE 85
== END 2024-05-21 00:15 | disposition home or self-care (01) | DRG 720 ==
LOC: EDBD 19:55 → ER 19:55 → MICUSO 21:13 → EDBEDREQTM 22:23 → 5EST 05-17 02:00
PROVIDERS: ADMIT Internal Medicine; ATTEND Internal Medicine
PROC: 0BH17EZ Insertion of Endotracheal Airway into Trachea, Via Natural or Artificial Opening (ICD-10-PCS; principal; 2024-05-10)
PROC: 5A1955Z Respiratory Ventilation, Greater than 96 Consecutive Hours (ICD-10-PCS; 2024-05-10)
PROC: 4A10X4Z Monitoring of Central Nervous Electrical Activity, External Approach (ICD-10-PCS; 2024-05-12)
DX: A41.9 Sepsis, unspecified organism (principal); J96.01 Acute respiratory failure with hypoxia; J69.0 Pneumonitis due to inhalation of food and vomit; E87.29 Other acidosis; D69.6 Thrombocytopenia, unspecified; M62.82 Rhabdomyolysis; N17.9 Acute kidney failure, unspecified; G40.901 Epilepsy, unspecified, not intractable, with status epilepticus; I95.9 Hypotension, unspecified; I10 Essential (primary) hypertension; K59.00 Constipation, unspecified; J96.02 Acute respiratory failure with hypercapnia; D53.9 Nutritional anemia, unspecified; E11.65 Type 2 diabetes mellitus with hyperglycemia; F10.129 Alcohol abuse with intoxication, unspecified; F19.10 Other psychoactive substance abuse, uncomplicated
CPT/HCPCS: 36415; 36600; 71045; 80048; 80076; 80305; 80320; 81003; 82140; 82375; 82550; 82607; 82728; 82746; 82805; 83036; 83540; 83550; 83735; 84100; 84145; 84439; 84443; 84484; 85025; 85027; 87070; 87077; 87186; 92610; 93005; 93970; 94002; 94003; 94640; 95816; 97116; 97162; 97166; 99291; A6261; J0360; J0692; J1650; J1953; J2060; J2185; J2250; J2704; J3010; J3475; J3480; J3490; J7050; J7060; Q9957; G0480